=== PATIENT | male | born 1975 | race Caucasian/White ===

== ENCOUNTER 2022-07-07 18:49 | Emergency (ER) | payer OTHER, MEDICAID ==
[~2022-07-07] VITALS: Ht 170.2 cm; Wt 80.3 kg
[2022-07-07 19:00] VITALS: BP 127/86
[2022-07-07] MEDS ORDERED: LORazepam 1 MG TAB PO ONE (19:00)
[2022-07-07 19:39] LABS: ANION GAP 15.4 (8-16); CARBON DIOXIDE 21.8 mmol/L (21-32); POTASSIUM 4.2 mmol/L (3.5-5.1)
[2022-07-07] MEDS ORDERED: NACL 0.9% 1,000 ML IV ONE (20:00)
[2022-07-07 21:07] VITALS: BP 106/62
--- NOTE | 2022-07-07 21:10 | NUR ---
Patient discharged with v/s stable. Written and verbal after care instructions given and explained. Patient verbalized understanding. Ambulatory with to home. All questions addressed prior to discharge. Advised to follow up with PMD.
== END 2022-07-07 21:10 | disposition home or self-care (01) ==
LOC: MED 18:49
DX: R56.9 Unspecified convulsions (principal); R42 Dizziness and giddiness; E11.9 Type 2 diabetes mellitus without complications
CPT/HCPCS: 36415; 80048; 96360; 99283; J7030